=== PATIENT | female | born 1985 | race Caucasian/White ===

== ENCOUNTER 2018-09-25 23:14 | Emergency (ER) | payer OTHER ==
[~2018-09-25 23:14] MED LIST: Bactrim Ds Tab1 EACH PO; HYDACE5 PO; IBUP800 PO; MULVITMINE; NAPR500 PO; NITR100CA PO; OXYACE5T PO; PROM25 PO; TRAM50 PO; Verotin-Gr Cap1 EACH PO
== END 2018-09-26 00:02 | disposition left against medical advice (07) ==
LOC: ER 23:14
DX: Z53.21 Procedure and treatment not carried out due to patient leaving prior to being seen by health care provider (principal)

== ENCOUNTER 2018-12-16 06:42 | Emergency (ER) | payer OTHER ==
[~2018-12-16] VITALS: Ht 165.1 cm; Wt 63.5 kg
[2018-12-16] MEDS ORDERED: BENADRYL25 MG PO (08:00)
== END 2018-12-16 08:26 | disposition home or self-care (01) ==
LOC: ER 06:42
DX: S01.01XA Laceration without foreign body of scalp, initial encounter (principal); R21 Rash and other nonspecific skin eruption; Z23 Encounter for immunization; X58.XXXA Exposure to other specified factors, initial encounter
CPT/HCPCS: 90471; 90714; 99282-25; Q0163

== ENCOUNTER 2019-03-04 22:27 | Emergency (ER) | payer OTHER ==
[~2019-03-04] VITALS: Ht 165.1 cm; Wt 63.5 kg
[~2019-03-04 22:27] MED LIST changes: +BENADRYL25 MG PO
[2019-03-04] MEDS ORDERED: Augmentin 875-1 EACH PO (23:26)
== END 2019-03-04 23:58 | disposition home or self-care (01) ==
LOC: ER 22:27
DX: S31.159A Open bite of abdominal wall, unspecified quadrant without penetration into peritoneal cavity, initial encounter (principal); W54.0XXA Bitten by dog, initial encounter
CPT/HCPCS: 99283

== ENCOUNTER 2019-10-15 11:35 | Emergency (ER) | payer OTHER ==
[~2019-10-15] VITALS: Ht 165.1 cm; Wt 68.0 kg
[~2019-10-15 11:35] MED LIST changes: +Augmentin 875-1 EACH PO
[2019-10-15 12:15] LABS: Source, Urine Clean Catch
[2019-10-15 12:18] LABS: Appearance, Urine Cloudy (Clear); Bilirubin, Urine Neg (Neg); Blood, Urine 3+ (Neg); Color, Urine Yellow (P-Yellow); Glucose Qualitative, Urine Neg (Neg); Ketones, Urine Neg (Neg); Leukocyte Esterase, Urine 3+ (Neg); Nitrite, Urine Neg (Neg); Protein, Urine 2+ (Neg); Specific Gravity, Urine 1.015 (1.003-1.022); Urobilinogen, Urine NORM (Normal); pH, Urine 6.5 (5.0-8.0)
[2019-10-15] MEDS ORDERED: METH5 PO (12:19)
[2019-10-15 12:24] LABS: Bacteria Many /hpf; Squamous Epithelial Cells Many /hpf (Few); White Blood Cells, Urine TNTC /hpf (0-5)
[2019-10-15] MEDS ORDERED: CEPH500 PO (12:41)
[2019-10-15] MEDS ORDERED: Pyridium200 MG PO (13:07)
== END 2019-10-15 13:05 | disposition home or self-care (01) ==
LOC: ER 11:35
PROVIDERS: Emergency Medicine
DX: N39.0 Urinary tract infection, site not specified (principal)
CPT/HCPCS: 81001; 87077; 87086; 87186; 99283

== ENCOUNTER 2020-05-22 09:47 | Emergency (ER) | payer OTHER ==
[~2020-05-22] VITALS: Ht 165.1 cm; Wt 72.6 kg
[~2020-05-22 09:47] MED LIST changes: +CEPH500 PO; +METH5 PO; +Pyridium200 MG PO
[2020-05-22] MEDS ORDERED: Keflex500 MG PO (10:11)
[2020-05-22] MEDS ORDERED: Pyridium200 MG PO (10:11)
[2020-05-22 10:28] LABS: Source, Urine Clean Catch
[2020-05-22 10:31] LABS: Bilirubin, Urine Neg (Neg); Blood, Urine 5+ (Neg); Glucose Qualitative, Urine Neg (Neg); Ketones, Urine 4+ (Neg); Leukocyte Esterase, Urine 3+ (Neg); Nitrite, Urine Neg (Neg); Protein, Urine 3+ (Neg); Specific Gravity, Urine 1.025 (1.003-1.022); Urobilinogen, Urine 1+ (Normal)
[2020-05-22 10:38] LABS: Appearance, Urine Cloudy (Clear); Bacteria Mod /hpf; Color, Urine Yellow (P-Yellow); Red Blood Cells, Urine TNTC /hpf (0-2); Squamous Epithelial Cells Not Seen /hpf (Few); White Blood Cells, Urine TNTC /hpf (0-5)
== END 2020-05-22 11:02 | disposition home or self-care (01) ==
LOC: ER 09:47
PROVIDERS: Physician Assistant
DX: N39.0 Urinary tract infection, site not specified (principal); Z79.891 Long term (current) use of opiate analgesic
CPT/HCPCS: 81001; 81025; 87077; 87086; 87147; 87186; 93005; 93010; 99283-25

== ENCOUNTER → 2022-08-28 | Outpatient (CLI) | payer OTHER ==
[~2022-08-28] MED LIST changes: +Keflex500 MG PO
[2022-09-02 13:10] LABS: HPV APTIMA Negative (Negative)
== END | disposition home or self-care (01) ==
LOC: LAB SHORT 17:15
PROVIDERS: Nurse Practitioner Family
DX: Z01.419 Encounter for gynecological examination (general) (routine) without abnormal findings (principal)
CPT/HCPCS: 87624; 88175